=== PATIENT | male | born 1980 | race Caucasian/White ===

== ENCOUNTER 2020-03-21 12:04 | Emergency (ER) | payer SELFPAY ==
--- NOTE | ~2020-03-21 | XR_ITS ---
EXAMINATION: XR lumbar spine 2-3V, XR thoracic spine 3V DATE: 03/21/2020 13:31 INDICATION: Back pain after bending TECHNIQUE: 1. Anteroposterior, lateral and lateral swimmer's views of the thoracic spine were obtained. 2. Anteroposterior and lateral views of the lumbar spine, and cone-down lateral view of the lumbosac ral junction were obtained. COMPARISON: None. FINDINGS: Thoracic spine: 8 degree thoracic levocurvature measured between T4 and T7. Sagittal alignment is normal. Vertebral b marianela heights are normal. Minimal disc height loss at T3-T4 through T5-T6. Visualized portions of the l ungs are clear. No pleural effusion or pneumothorax. Cardiomediastinal silhouette is normal. Lumbar spine: 9 mm retrolisthesis L5 on S1 where there has been both anterior and posterior spinal fusion with lef t cervical carotid and pedicle screws, anterior plate and screws and solid osseous fusion across the disc space. No evident lucency surrounding the screws to suggest loosening or infection. 1-2 mm retro listhesis L2 on L3. Vertebral body heights are normal. Unfused disc heights are normal. No significan t lumbar facet osteoarthritis. Sacrum and bilateral sacroiliac joints are unremarkable. IMPRESSION: 1. 9 mm retrolisthesis L5 on S1 with solidly fused instrumented anterior and posterior spinal fusion at this level. 2. Minimal spondylosis in the more cephalad lumbar and thoracic spine. Reviewed, dictated and finalized at location [facility]. IMPRESSION: 1. 9 mm retrolisthesis L5 on S1 with solidly fused instrumented anterior and po sterior spinal fusion at this level. 2. Minimal spondylosis in the more cephalad lumbar and thoracic spine.
[2020-03-21 12:08] VITALS: BP 149/87; PULSE 103; RESP 18; TEMP 36.2; O2SAT 100
--- NOTE | 2020-03-21 12:25 | ED.GENADULT ---
HPI - General Adult General Chief complaint: Back Pain/Injury Stated complaint: back pain Time Seen by Provider: 03/21/20 12:19 Source: patient Mode of arrival: ambulatory Limitations: no limitations History of Present Illness HPI narrative: 39-year-old male patient resents to the [facility] with complaints of mid back pain that started yesterday morning. 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 Patient has history of lower lumbar surgery in the past. 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 Patient states he has been using icy hot, heating pad and multiple doses of ibuprofen to help with pain which has not helped. Patient denies any numbness or tingling down the legs or loss of bladder or bowel control. Patient states he is just constantly uncomfortable and cannot seem to be comfortable at all. Related Data Home Medications Medication Instructions Recorded Confirmed omeprazole 20 mg PO DAILY 03/21/20 03/21/20 Allergies Allergy/AdvReac Type Severity Reaction Status Date / Time No Known Allergies Allergy Unverified 03/21/20 12:13 Review of Systems Review of Systems: Narrative: CONSTITUTIONAL: Denies fever, chills, or sweats. EYES: Denies visual changes, redness, or discharge. ENT: Denies rhinorrhea, congestion, sore throat, or otalgia. CARDIOVASCULAR: Denies chest pain, palpitations, or edema. RESPIRATORY: Denies cough or dyspnea. GASTROINTESTINAL: Denies abdominal pain, nausea, vomiting, or diarrhea. GENITOURINARY: Denies dysuria or hematuria. SKIN: Denies rash or itching. MUSCULOSKELETAL: Denies back pain, joint pain, or myalgia. Positive back pain NEUROLOGIC: Denies headache, numbness, or weakness. PSYCHIATRIC: Denies anxiety or depression. PMFSH Social History Social History Gender identity (if verbalized by the patient): Male Comments At the time of my signature I agree with nursing past medical history, surgical, social, and family history. There is no relevant family history pertinent to the presenting complaint. Exam Narrative: Exam Narrative: GENERAL: Well-appearing, well-nourished, and in no acute distress. HEAD: Normocephalic, atraumatic. EYES: PERRLA and EOMI. ENT: Nares clear, no rhinorrhea or epistaxis. Mucous membranes moist. NECK: Supple. No lymphadenopathy CHEST: Clear to auscultation. No respiratory distress. HEART: Regular rate and rhythm. No murmur heard. Normal peripheral pulses. ABDOMEN: Soft, nontender, nondistended, normal active bowel sounds. EXTREMITIES: Normal range of motion. No edema. BACK: Patient is able to ambulated without assistance. Pt is standing obvouis distress. No surface trauma noted. No muscle tenderness to Palpation. No obvious spasm or mass. Tenderness on palpation noted to to T12 area. No CVA tenderness to percussion. No saddle anesthesia. ROM: able to stand erect. Painful flexion, extension, Lateral bending and rotation without limitation or complaint of pain. SKIN: Warm, dry, no rash. NEURO: No focal deficits. Alert and oriented x3. Course Reevaluation(s) Reevaluation #1: Reevaluated patient after his x-rays have resulted. Discussed with him that I do not see anything in the spine of the area that he was pointing to to have caused his pain. Discussed with his this is most likely some type of muscle spasm that could be causing his pain. Discussed with patient we will go ahead and discharge him home and I will give him a little bit of tramadol as well as some muscle relaxants to help with the pain. Discussed with him I want him to continue using the heating pad and doing some gentle stretching exercises. Discussed with him if he has symptoms of numbness and tingling down the legs or loss of bowel or bladder control that I want him to return to the ER right away. Discussed with him we will give him a
[2020-03-21] MEDS: DIAZEPAM 5 MG TABLET PO (13:02)
== END 2020-03-21 14:24 | disposition home or self-care (01) ==
PROVIDERS: Emergency Provider Nurse Practitioner Family
DX: M62.830 Muscle spasm of back (principal); M54.6 Pain in thoracic spine
CPT/HCPCS: 72072; 72100; 99283; A9270

== ENCOUNTER 2021-01-18 22:43 | Emergency (ER) | payer SELFPAY ==
--- NOTE | ~2021-01-18 | XR_ITS ---
EXAMINATION: XR hand LT min 3V EXAM DATE: 01/19/2021 00:06 INDICATION: Slammed hand in car door, laceration to 5th digit. TECHNIQUE: Left hand frontal, lateral and oblique projections obtained and reviewed. There is no kiko or study for comparison. FINDINGS: Left metacarpal bones are unremarkable. There are no acute fractures or dislocations ident ified. There is no subcutaneous gas. The soft tissue is unremarkable. There are no radiopaque for eign bodies. IMPRESSION: No acute osseous findings. Reviewed, dictated and finalized at location [facility]. IMPRESSION: No acute osseous findings.
[2021-01-18 22:48] VITALS: BP 150/93; PULSE 106; RESP 20; TEMP 35.9; O2SAT 99
--- NOTE | 2021-01-18 23:34 | ED.UPPEXIN ---
HPI - Extremity Injury (Upper) General Chief Complaint: Wound/Laceration Stated Complaint: HAND LAC Time Seen by Provider: 01/18/21 23:07 Source: patient Mode of arrival: ambulatory Limitations: no limitations History of Present Illness HPI narrative: Patient is a 30-year-old male complaining of smashing his left pinky finger on a car door. Patient has a laceration on the left pinky finger. He denies any other injuries. His tetanus shot is not up-to-date. Related Data Home Medications Medication Instructions Recorded Confirmed omeprazole 20 mg PO DAILY 03/21/20 03/21/20 Allergies Allergy/AdvReac Type Severity Reaction Status Date / Time No Known Allergies Allergy Verified 01/18/21 22:51 Review of Systems Review of Systems: All systems reviewed & are unremarkable except as noted in HPI and below PMFSH Social History Social History Gender identity (if verbalized by the patient): Male Comments Past medical history: GERD Family history: Noncontributory Social history non-smoker, occasional EtOH use, no drug use Exam Const: General: no acute distress and alert Orientation/consciousness: patient oriented x3 HENMT: Head: normal to inspection Eyes: Conjunctivae: conjunctivae normal Neck: Neck: normal visual inspection Resp: Effort & Inspection: normal respiratory effort Extrem: General: no clubbing, cyanosis or edema Other: 2 cm laceration left hand fifth digit, neurovascular is intact Course Vital Signs Vital signs: Vital Signs Temperature 35.9 C L 01/18/21 22:48 Pulse Rate 106 H 01/18/21 22:48 Respiratory Rate 20 01/18/21 22:48 Blood Pressure 150/93 H 01/18/21 22:48 Pulse Oximetry 99 01/18/21 22:48 Temperature 35.9 C L 01/18/21 22:48 Pulse Rate 106 H 01/18/21 22:48 Respiratory Rate 20 01/18/21 22:48 Blood Pressure 150/93 H 01/18/21 22:48 Pulse Oximetry 99 01/18/21 22:48 Procedures Laceration Laceration 1: Date: 01/18/21 Site: hand Side (If applicable): left Size (cm): 2 Description: linear Depth: simple, single layer Local Anesthetic: lidocaine 1% Amount of anesthesia used (mL): 3 Pre-repair: wound explored ====== Skin Level ====== Skin layer closed with: prolene Size (cm): 4-0 Number of sutures: 2 Technique: simple, interrupted ====== Subcutaneous Layer ====== ====== Muscle Layer ====== ====== Tendon Layer ====== Discharge Plan Discharge Clinical Impression: Finger laceration Qualifiers: Encounter type: initial encounter Finger: little finger Damage to nail status: without damage Foreign body presence: without foreign body Laterality: left Qualified Code(s): S61.217A - Laceration without foreign body of left little finger without damage to nail, initial encounter Patient Disposition: Home, Self-Care Condition: Improved Instructions: Care For Your Stitches (ED) Additional Instructions: Suture removal in 10 days Prescriptions: No Action omeprazole 20 mg Tablet,Delayed Release (Dr/Ec) 20 mg PO DAILY RF: 0 hydrocodone-acetaminophen [[place]] 5-325 mg tablet 1 tablet PO Q6H PRN (Reason: pain) Qty: 10 RF: 0 cyclobenzaprine 10 mg tablet 10 mg PO TID PRN (Reason: muscle spasm) Qty: 20 RF: 0 Follow-up/Referrals: PHYSICIAN,CORPORATE DRIVER [Primary Care Provider] - Time of Disposition: 23:38
[2021-01-19] MEDS: TETANUS,DIPHTHERIA,AC PERTUSSIS ADULT (0.5 ML) BOOSTRIX IM (00:07)
[2021-01-19 00:48] VITALS: BP 150/93; PULSE 100; RESP 16; TEMP 36.4; O2SAT 99
== END 2021-01-19 00:49 | disposition home or self-care (01) ==
PROVIDERS: Emergency Provider Emergency Medicine
DX: S61.217A Laceration without foreign body of left little finger without damage to nail, initial encounter (principal); K21.9 Gastro-esophageal reflux disease without esophagitis; Z23 Encounter for immunization; W23.0XXA Caught, crushed, jammed, or pinched between moving objects, initial encounter
CPT/HCPCS: 12001; 73130; 90471; 90715; 99283

== ENCOUNTER 2021-12-08 19:15 | Emergency (ER) | payer OTHER, SELFPAY ==
--- NOTE | ~2021-12-08 | CT_ITS ---
EXAMINATION: CT abdomen pelvis w con DATE: 12/08/2021 21:59 INDICATION: Lower abdominal pain TECHNIQUE: Computed tomography (CT) of the abdomen and pelvis was performed with 100 CC Omnipaque 350 intravenous contrast. Automated exposure control and iterative reconstruction technique were employe d. Exam dose: 1331.52 mGy-cm total exam DLP. COMPARISON: None. FINDINGS: The lung bases are clear of infiltrate or consolidation. Normal heart size. No pericardial or pleural effusion. There is diffuse hepatic steatosis. No hepatic space-occupying mass lesion. The gallbladder is presen t. No bile duct dilatation. No pancreatic mass lesion, calcification or ductal dilatation. The spleen measures 14.2 cm vertical dimension consistent with splenomegaly. Normal morphology of the adrenal glands. No renal mass lesion or scarring. No urinary tract calculus or hydroureteronephrosis. Normal caliber of the abdominal wall are consistent with atherosclerotic calcification of the infrare nal aorta and common iliac arteries. No intraperitoneal or retroperitoneal or pelvic mass lesion or a denopathy or ascites is detected. Normal appendix. There are fluid levels in the small bowel and colon without abnormal dilatation, abn ormal wall thickening, pneumatosis or intraperitoneal free air. The findings suggest enterocolitis. The urinary bladder and prostate gland are unremarkable. Bilateral small fat-containing inguinal hernias. Very small fat-containing umbilical hernia. Status post anterior and interbody and left posterior fusion at L5-S1. IMPRESSION: Hepatic steatosis Mild splenomegaly Normal appendix Fluid levels of small bowel and colon, suggesting enterocolitis Reviewed, dictated and finalized at [facility]. Reviewed, dictated and finalized at location [facility]. MANAGEMENT COUNSELOR
[2021-12-08 19:18] VITALS: BP 162/90; PULSE 110; RESP 18; TEMP 36.6; O2SAT 97
[2021-12-08 20:40] VITALS: BP 153/94; PULSE 104; RESP 18; O2SAT 97
[2021-12-08 20:48] VITALS: BP 137/84; PULSE 94
[2021-12-08 20:49] VITALS: BP 160/105; PULSE 111
[2021-12-08 20:51] VITALS: BP 144/91; PULSE 108
[2021-12-08 20:54] LABS: Basophils Absolute Auto 0.1 K/mm3 (0.0-0.1); Basophils Percent Auto 1.1 % (0.2-1.2); Eosinophils Absolute Auto 0.1 K/mm3 (0-0.3); Eosinophils Percent Auto 1.2 % (0-4.4); Hemoglobin 15.6 g/dL (14.0-18.0); Immature Granulocyte Absolute 0.05 K/mm3 (0.00-0.031); Immature Granulocyte Percent A 0.4 % (0-0.5); Lymphocytes Percent Auto 35.4 % (18.3-44.2); Mean Corpuscular HGB Conc 35.5 g/dl (32-36); Mean Corpuscular Volume 87.5 fl (80-100); Mean Platelet Volume 9.5 fl (7.4-10.4); Monocytes Percent Auto 8.2 % (2.6-8.5); Neutrophils Absolute Auto 6.2 K/mm3 (1.3-6.7); Neutrophils Percent Auto 53.7 % (45.5-73.1); Platelet Count Result 252 k/mm3 (150-375); Red Blood Count 5.03 M/mm3 (4.6-6.20); Red Cell Distribution Width 13.9 % (11.5-14.5); White Blood Count 11.6 K/mm3 (4.5-10.0)
[2021-12-08 21:04] LABS: Alanine Aminotransferase 46 U/L (4-50); Albumin Level 4.6 g/dL (3.5-5.1); Alkaline Phosphatase 49 U/L (38-126); Anion Gap 11 mmol/L (8-16); Aspartate Amino Transferase 43 U/L (17-59); Bilirubin,Total 1.2 mg/dL (0.2-1.3); Blood Urea Nitrogen 11 mg/dL (9-20); Calcium 8.6 mg/dL (8.4-10.2); Carbon Dioxide 23 mmol/L (22-30); Chloride 104 mmol/L (98-107); Estimated CRCL calculation 128 ml/min; Estimated Glomerular Filt Rate > 60; Glucose 87 mg/dL (65-110); Potassium 3.6 mmol/L (3.4-5.0); Sodium 138 mmol/L (137-145)
[2021-12-08 21:07] LABS: Partial Thromboplastin Time 28.5 SECONDS (22.3-36.8); Prothrombin Time 12.7 Seconds (11.1-14.7)
[2021-12-08] MEDS: LACTATED RINGERS 1,000 ML 999 ML IV CONT (22:04)
[2021-12-08] MEDS: ONDANSETRON INJ 4 MG/2 ML VIAL IV PUSH (22:04)
[2021-12-08] MEDS: PANTOPRAZOLE SODIUM IV 40 MG VIAL IV PUSH (22:04)
--- NOTE | 2021-12-08 22:05 | ED.GIBLEED ---
HPI - GI Bleed General Chief complaint: GI Bleed Stated complaint: blood in stool, vomiting Time Seen by Provider: 12/08/21 21:30 Source: patient and RN notes reviewed Mode of arrival: ambulatory Limitations: no limitations History of Present Illness HPI Narrative: Martin s a 41 year old male with history of GERD who presents for evaluation of bloody stools. Patient reports he started getting sick 1 week ago. He started with diarrhea with blood and mucus 1 week ago. He was having 2- 3 stools per day which is normal for him. He has only had diarrhea once today and he denies any blood in his stool today. He came to ER because he developed nausea and vomiting yesterday. He had 3 episodes of emesis today and he reports his last episode has blood streaks. He has intermittent lower abdominal pain . He denies recent antibiotic use or travel. He also denies fever or chills. Related Data Home Medications Medication Instructions Recorded Confirmed escitalopram oxalate mg 12/08/21 hydroxyzine HCl 12/08/21 12/08/21 omeprazole 40 mg PO DAILY 12/08/21 12/08/21 quetiapine 12/08/21 12/08/21 Allergies Allergy/AdvReac Type Severity Reaction Status Date / Time No Known Allergies Allergy Verified 12/08/21 20:41 Review of Systems Review of Systems: All systems reviewed & are unremarkable except as noted in HPI and below Constitutional: Constitutional: Reports chills and Reports fatigue Comments: sweats Cardiovascular: Cardiovascular: Denies chest pain Respiratory: Respiratory: Denies cough and Denies dyspnea Gastrointestinal: Gastrointestinal: Reports abdominal pain, Reports diarrhea, Reports nausea and Reports vomiting PMFSH Past Medical History Medical History (Updated 12/09/21 @ 00:51 by Bonnie Sarah MD) Anxiety Depression GERD (gastroesophageal reflux disease) Surgical History Surgical History (Updated 12/08/21 @ 22:09 by Bonnie Sarah MD) History of lumbar fusion Social History Social History (Updated 12/08/21 @ 22:10 by Bonnie Sarah MD) Smoking packs per day: 1 Smoking cigarettes per day: 20.0 Smoking status: Current every day smoker Alcohol intake: current Substance use: never Gender identity (if verbalized by the patient): Male Exam Const: General: no acute distress and alert Orientation/consciousness: patient oriented x3 Eyes: EOM: EOMs intact bilaterally Chest: Chest palpation & inspection: normal inspection of the chest Resp: Effort & Inspection: normal respiratory effort and no retractions Auscultation: clear to auscultation bilaterally Cardio: Rate: regular rate Rhythm: regular rhythm Heart sounds: no murmurs GI: GI Palp: Yes Soft to palpation, Yes Tenderness to palpation present (GI) (lower abdomen), No Guarding due to palpation present (GI) and No Rigid due to palpation Auscultation: normal bowel sounds Skin: General skin exam: normal color Rashes: no rashes Neuro: General: patient oriented x3, moves all extremities and CN's II-XI intact bilaterally Course Reevaluation(s) Reevaluation #1: Patient states he feels much better. He denies nausea or vomiting. His stool is yellow and guaic negative. He likely has mucosal tear superficial . . Date: 12/09/21 Time: 00:47 Vital Signs Vital signs: Vital Signs Temperature 98 F 12/08/21 19:18 Pulse Rate 110 H 12/08/21 19:18 Respiratory Rate 18 12/08/21 19:18 Blood Pressure 162/90 H 12/08/21 19:18 Pulse Oximetry 97 12/08/21 19:18 Temperature 98 F 12/08/21 19:18 Pulse Rate 98 12/09/21 01:19 Respiratory Rate 18 12/09/21 01:19 Blood Pressure 146/107 H 12/09/21 01:19 Pulse Oximetry 97 12/09/21 01:19 MDM - GI Bleed Lab Data Attestation: I reviewed the patient's lab results. Result diagrams: 12/08/21 20:49 12/08/21 20:49 Labs: Lab Results 12/08/21 12/08/21 12/08/21 Range/Units 20:49 20:49 20:49 WBC 11.6 H (4.5-10.0) K/
[2021-12-08 22:32] VITALS: BP 140/83; PULSE 86; RESP 16; O2SAT 96
--- NOTE | 2021-12-09 00:18 | PC.NURSE ---
Pt given water and crackers
[2021-12-09 01:19] VITALS: BP 146/107; PULSE 98; RESP 18; O2SAT 97
== END 2021-12-09 01:21 | disposition home or self-care (01) ==
PROVIDERS: Emergency Medicine; Emergency Provider General Practice
DX: K52.9 Noninfective gastroenteritis and colitis, unspecified (principal); K21.9 Gastro-esophageal reflux disease without esophagitis; F41.9 Anxiety disorder, unspecified; F32.A Depression, unspecified; Z98.1 Arthrodesis status; F17.210 Nicotine dependence, cigarettes, uncomplicated; R16.1 Splenomegaly, not elsewhere classified
CPT/HCPCS: 36415; 74177; 80053; 85025; 85610; 85730; 86850; 86900; 86901; 96361; 96374; 96375; 99284; C9113; J2405; J7120; Q9967

== ENCOUNTER 2022-11-04 13:32 | Emergency (ER) | payer OTHER, MEDICAID, SELFPAY ==
--- NOTE | ~2022-11-04 | CT_ITS ---
EXAMINATION: CT brain wo con DATE: 11/04/2022 14:18 INDICATION: Vision change TECHNIQUE: Computed tomography (CT) of the head was performed without intravenous contrast. Sagittal and coronal reconstructions were performed. The mA was adjusted according to patient size. Iterative reconstruction technique was employed. The dose-length product was 605.33 mGy-cm. COMPARISON: head CT dated 12/15/16 FINDINGS: No acute intracranial hemorrhage, acute infarction or abnormal extra axial fluid collection. Ventricl es are normal and symmetric. No mass/mass effect. The paranasal sinuses and mastoid air cells are nor mal. 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 Left orbit is normal. IMPRESSION: 1. Normal brain. No acute intracranial process. 2. 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 Reviewed, dictated and finalized at location [facility]. NARY ASSISTANT IMPRESSION: 1. Normal brain. No acute intracranial process. 2. 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
[2022-11-04 13:35] VITALS: BP 152/83; PULSE 107; RESP 14; TEMP 36.4; O2SAT 100
--- NOTE | 2022-11-04 14:10 | ED.GENADULT ---
HPI - General Adult General Chief complaint: Neuro Symptoms/Deficit Stated complaint: neurological symptoms x 2 weeks Time Seen by Provider: 11/04/22 13:43 History of Present Illness HPI narrative: 42-year-old male presenting to the emergency department for evaluation of multiple symptoms including intermittent blurred vision, nonspecific changes and decreased p.o. intake. Patient states approximately 2 weeks ago he began having intermittent episodes that last about 10 to 15 seconds where he has some lightheadedness. Patient denies feeling off loss of consciousness and does not describe a spinning sensation. Patient states these episodes can happen multiple times a day and are very short lasting. Patient states that happen during activity or at rest. Patient did give example of it happening when he was doing a jigsaw puzzle and he was highly focused on the puzzle. Patient also reports that when walking he has had some short lasting changes and depth perception changes that are also short lasting. Patient also reports that he has seen short lasting shadows in his peripheral vision, he gave the example of seeing a dark shadow in his peripheral vision that he thought was his dog but turned out it was not his dog. These shadows are very short lasting and are not currently occurring. Patient also reports that 1 week ago he was switched from Effexor to Zoloft. Patient reports since this time he has had decreased p.o. intake. Patient takes his medications for his OCD. While the Effexor has helped with his OCD his psychiatrist concerned that it may not be helping enough. Patient was referred to the emergency department for evaluation for his multiple complaints. At time of examination denies any visual changes. Patient denies any current lightheadedness or dizziness. Related Data Home Medications Medication Instructions Recorded Confirmed escitalopram oxalate 10 mg tablet mg 12/08/21 hydroxyzine HCl 25 mg tablet 12/08/21 12/08/21 omeprazole 40 mg capsule,delayed 40 mg PO DAILY 12/08/21 12/08/21 release quetiapine 100 mg tablet 12/08/21 12/08/21 Allergies Allergy/AdvReac Type Severity Reaction Status Date / Time No Known Allergies Allergy Verified 11/04/22 14:32 Review of Systems Review of Systems: CONSTITUTIONAL: Denies fever, chills, or sweats. EYES: See HPI ENT: Denies rhinorrhea, congestion, sore throat, or otalgia. CARDIOVASCULAR: Denies chest pain, palpitations, or edema. RESPIRATORY: Denies cough or dyspnea. GASTROINTESTINAL: See HPI GENITOURINARY: Denies dysuria or hematuria. SKIN: Denies rash or itching. MUSCULOSKELETAL: Denies back pain, joint pain, or myalgia. NEUROLOGIC: Denies headache, numbness, or weakness. PSYCHIATRIC: See HPI [facility] Past Medical History Medical History (Updated 11/04/22 @ 16:11 by Bandar Garza MD) Anxiety Depression GERD (gastroesophageal reflux disease) Surgical History Surgical History (Updated 12/08/21 @ 22:09 by Bonnie Sarah MD) History of lumbar fusion Social History Social History (Updated 12/08/21 @ 22:10 by Bonnie Sarah MD) Smoking packs per day: 1 Smoking cigarettes per day: 20.0 Smoking status: Current every day smoker Alcohol intake: current Substance use: never Gender identity (if verbalized by the patient): Male Exam Narrative: APPEARANCE: Well appearing, no pain, no distress, well-nourished. HEAD: normocephalic, atraumatic. EYES: PERRLA/EOMI, conjunctivae clear. Normal fundus exam NOSE: Normal no drainage EARS:TMS clear with good light reflex. THROAT: Pharynx clear, no exudate. NECK: Supple. No adenopathy, no masses. RESPIRATORY: Airway patent, respirations nonlabored. Clear to auscultation bilaterally, no rales, rhonchi, wheezing. CARDIOVASCULAR: Regular rate and rhythm without murmurs rubs or gallops. ABDOMINAL: Soft, nontender, nondistended, normal bowel sounds MUSCULOSKELETAL: Moves all extremities. Strength/ROM intact,
[2022-11-04 14:11] VITALS: O2SAT 97
[2022-11-04 14:13] VITALS: BP 148/85
[2022-11-04 14:20] VITALS: O2SAT 96
[2022-11-04 14:27] LABS: Basophils Absolute Auto 0.1 K/mm3 (0.0-0.1); Basophils Percent Auto 1.3 % (0.2-1.2); Eosinophils Absolute Auto 0.3 K/mm3 (0-0.3); Eosinophils Percent Auto 3.3 % (0-4.4); Hematocrit 43.6 % (42.0-52.0); Hemoglobin 15.3 g/dL (14.0-18.0); Immature Granulocyte Absolute 0.04 K/mm3 (0.00-0.031); Immature Granulocyte Percent A 0.4 % (0-0.5); Lymphocytes Percent Auto 33.4 % (18.3-44.2); Mean Corpuscular HGB Conc 35.1 g/dl (32-36); Mean Corpuscular Hemoglobin 29.9 pg (26-34); Mean Corpuscular Volume 85.2 fl (80-100); Mean Platelet Volume 9.2 fl (7.4-10.4); Monocytes Absolute Auto 0.8 K/mm3 (0.1-0.6); Monocytes Percent Auto 8.9 % (2.6-8.5); Neutrophils Absolute Auto 4.9 K/mm3 (1.3-6.7); Neutrophils Percent Auto 52.7 % (45.5-73.1); Platelet Count Result 215 k/mm3 (150-375); Red Blood Count 5.12 M/mm3 (4.6-6.20); White Blood Count 9.3 K/mm3 (4.5-10.0)
[2022-11-04 14:32] VITALS: O2SAT 97
[2022-11-04 14:36] LABS: Alanine Aminotransferase 76 U/L (6-50); Alkaline Phosphatase 42 U/L (38-126); Anion Gap 6 mmol/L (8-16); Aspartate Amino Transferase 47 U/L (17-59); Bilirubin,Total 0.8 mg/dL (0.2-1.3); Blood Urea Nitrogen 6 mg/dL (9-20); Calcium 8.6 mg/dL (8.4-10.2); Carbon Dioxide 27 mmol/L (22-30); Chloride 104 mmol/L (98-107); Estimated CRCL calculation 156 ml/min; Estimated Glomerular Filt Rate > 60; Glucose 114 mg/dL (65-110); Potassium 3.7 mmol/L (3.4-5.0); Sodium 137 mmol/L (137-145)
[2022-11-04 14:37] LABS: Magnesium 1.9 mg/dL (1.6-2.3)
[2022-11-04 14:37] LABS: Prothrombin Time 13.1 Seconds (11.1-14.7)
[2022-11-04 14:38] LABS: Partial Thromboplastin Time 30.1 SECONDS (22.3-36.8)
[2022-11-04 14:48] LABS: Influenza A QL RT-PCR Negative (Negative); Influenza B QL RT-PCR Negative (Negative); RSV RNA, RT-PCR Negative (Negative); SARS-CoV-2 RNA PCR Negative
[2022-11-04 15:03] LABS: Appearance Urine Clear (Clear); Bilirubin Urine 1+ (Negative); Blood Urine Negative (Negative); Color Urine Yellow (Yellow); Glucose Urine UA Negative (Negative); Ketones Urine Negative (Negative); Leukocyte Esterase Ur Negative LEU/UL (Negative); Nitrate Urine Negative (Negative); Protein Urine 1+ mg/dL (Negative); pH Urine 6.5 (5.0-9.0)
[2022-11-04 15:10] LABS: Bacteria Urine Trace /hpf; Mucus Urine Rare /lpf; RBC Urine 0-2 /hpf (0-2); Squamous Epithelial Cell Urine Rare /hpf (Few); WBC Urine 0-3 /hpf
[2022-11-04 15:11] LABS: Add Urine Microscopic? YES
--- NOTE | 2022-11-04 15:57 | ECG_ITS ---
Measurements Intervals [place] Rate: 91 P: 55 NV: 141 QRS: 47 QRSD: 89 T: 41 QT: 360 QTc: 443 Interpretive Statements SINUS RHYTHM LOW QRS VOLTAGE IN PRECORDIAL LEADS BORDERLINE T WAVE ABNORMALITY- HIGH LATERAL LEADS BASELINE ARTIFACT- I, II, AVR, AVL, AVF BORDERLINE ECG NO PREVIOUS ECG AVAILABLE FOR COMPARISON Electronically Signed On 11-04-2022 19:18:54 ELECTROTYPER by Victor Hugo Loving D.O.
== END 2022-11-04 16:35 | disposition home or self-care (01) ==
PROVIDERS: Emergency Provider Emergency Medicine
DX: R42 Dizziness and giddiness (principal); H53.9 Unspecified visual disturbance; Z20.822 Contact with and (suspected) exposure to COVID-19; F41.9 Anxiety disorder, unspecified; F32.9 Major depressive disorder, single episode, unspecified; K21.9 Gastro-esophageal reflux disease without esophagitis
CPT/HCPCS: 36415; 70450; 80053; 81001; 83735; 84443; 85025; 85610; 85730; 87637; 93005; 99284

== ENCOUNTER 2022-12-02 12:01 | Emergency (ER) | payer OTHER, MEDICAID, SELFPAY ==
--- NOTE | ~2022-12-02 | CT_ITS ---
EXAMINATION: CT thoracic lumbar wo con DATE: 12/02/2022 14:05 INDICATION: Back pain post fall TECHNIQUE: High resolution computed tomography (CT) of the thoracic and lumbar spine was performed wi thout intravenous contrast. Additional sagittal and coronal reconstructions were performed. Automated exposure control and iterative reconstruction technique were employed. The dose-length product was 2 207.47 mGy-cm. COMPARISON: CT abdomen and pelvis dated 12/08/2021 and thoracic and lumbar spine radiographs dated 03/11 FINDINGS: Thoracic spine: Minimal thoracic levocurvature. Sagittal alignment is normal. Chronic minimal anterior wedging of T11 and T12. Remaining thoracic vertebral body heights are normal. There is multilevel mild disc height loss from T3-T4 through T5-T6 and minimal disc height loss with mild degenerative endplate changes at T6-T7 through T10-11. Unchanged small corticated ossicle at the caudal tip of the T6 spinous process . No acute fractures. Multilevel mild thoracic facet osteoarthritis without neural foraminal stenosis . No central canal stenosis. Respiratory motion minimal atelectasis in the visualized lungs. Paravert ebral soft tissues are unremarkable. Lumbar spine: Alignment is normal. L5-S1 anterior spinal fusion with incorporated interbody bone graft and anterior plate and screw fixation. There is also an L5-S1 posterior spinal fusion with solid osseous fusion a cross the bilateral facet joints and with right-sided vertical iraida and pedicle screw fixation. Bone g raft harvest site at the adjacent right posterior iliac spine. Unfused lumbar vertebral body and disc heights are normal. Mild disc bulges without significant central canal stenosis at L2-L3 through L4- L5. Moderate left and moderate to severe right sided facet osteoarthritis at L4-L5. Mild facet osteoa rthritis in the more cephalad lumbar spine. Mild bilateral neural foraminal stenosis at L3-L4 and L4- L5 and minimal bilateral stenosis at L2-L3. Paravertebral soft tissues are unremarkable. IMPRESSION: 1. Mild thoracic and lumbar spondylosis. No acute osseous abnormality. 2. Estimated anterior and posterior spinal fusion at L5-S1. Reviewed, dictated and finalized at location A. [facility]
[2022-12-02 12:04] VITALS: BP 151/84; PULSE 110; RESP 18; TEMP 36.6; O2SAT 97
[2022-12-02 12:54] VITALS: BP 105/56; PULSE 83; RESP 18; TEMP 37.1; O2SAT 97
--- NOTE | 2022-12-02 13:30 | ED.BACK ---
HPI - Back Pain/Injury General Chief Complaint: Back Pain/Injury Stated Complaint: back pain post fall Time Seen by Provider: 12/02/22 13:29 Source: patient Mode of arrival: ambulatory Limitations: no limitations History of Present Illness HPI Narrative: Patient is a 42-year-old male with a history of lumbar spinal fusion presenting for evaluation of back pain. Patient states that he tripped while ascending a flight of steps while holding some household items 5 days ago. Patient states he fell onto his right side. No head trauma. Patient reports since that time he has had continued pain in the lower back and radiation into the bilateral hips and pelvis. Pain is dull, aching in nature, exacerbated with movement. He reports right great toe numbness. He has been ambulatory without difficulty. No saddle anesthesia. No difficulty with urination, he denies urinary retention. He has not taken any medications for this pain. Secondary to his spinal fusion, wanted to ensure no active disc herniation or hardware complication thus prompting his visit to the emergency department today. Related Data Home Medications Medication Instructions Recorded Confirmed escitalopram oxalate 10 mg tablet mg 12/08/21 hydroxyzine HCl 25 mg tablet 12/08/21 12/08/21 omeprazole 40 mg capsule,delayed 40 mg PO DAILY 12/08/21 12/08/21 release quetiapine 100 mg tablet 12/08/21 12/08/21 Allergies Allergy/AdvReac Type Severity Reaction Status Date / Time No Known Allergies Allergy Verified 11/04/22 14:32 [facility] Past Medical History Medical History (Updated 12/02/22 @ 14:36 by Marla Nova MD) Anxiety Depression GERD (gastroesophageal reflux disease) Muscle spasm Surgical History Surgical History History of lumbar fusion Social History Social History Smoking packs per day: 1 Smoking cigarettes per day: 20.0 Smoking status: Current every day smoker Alcohol intake: current Substance use: never Gender identity (if verbalized by the patient): Male Exam Narrative: GENERAL: Awake, alert, conversant HEAD: Normocephalic, atraumatic. EYES: PERRLA and EOMI. ENT: Nares clear, no rhinorrhea or epistaxis. Mucous membranes moist. NECK: Supple. CHEST: No respiratory distress, breathing even and non labored HEART: Regular rate, sinus rhythm ABDOMEN:Non distended, non tender EXTREMITIES: Normal range of motion. No edema. No midline cervical tenderness. Positive thoracic tenderness about T11, 12, L1, 2, 3 and 4. Positive lumbar paraspinal tenderness. SKIN: Warm, dry, no rash. NEURO:No focal deficits. Alert and oriented x3. Ambulatory with a narrow base, steady gait. No ataxia. Intact EHL such as FHL bilaterally. Strength in the bilateral upper and lower extremities is 5/5. Intact upper and lower extremity sensation without limitation. Reflexes 2+ bilaterally. Course Vital Signs Vital signs: Vital Signs Temperature 36.6 C 12/02/22 12:04 Pulse Rate 110 H 12/02/22 12:04 Respiratory Rate 18 12/02/22 12:04 Blood Pressure 151/84 H 12/02/22 12:04 Pulse Oximetry 97 12/02/22 12:04 Oxygen Delivery Room Air 12/02/22 12:04 Temperature 37.1 C 12/02/22 12:54 Pulse Rate 83 12/02/22 12:54 Respiratory Rate 18 12/02/22 12:54 Blood Pressure 105/56 L 12/02/22 12:54 Pulse Oximetry 97 12/02/22 12:54 Oxygen Delivery Room Air 12/02/22 12:04 MDM - Back Pain/Injury MDM Narrative Medical decision making narrative: Medical decision making narrative: -Presentation: Patient is a 42-year-old male with a history of lumbar fusion presenting for evaluation of back pain following a fall while ascending a flight of steps. Patient is neurovascularly intact at the time of assessment, vital signs are stable and he is overall well-appearing. He does have reproducible pain in the midline of the th
[2022-12-02] MEDS: oxyCODONE/ACETAMINOPHEN (*CRX) 5-325 MG TABLET 1 TABLET PO (14:21)
[2022-12-02] MEDS: diazePAM (*CRX) 5 MG TABLET PO (14:22)
[2022-12-02 15:06] VITALS: BP 136/64; PULSE 106; RESP 14; O2SAT 98
== END 2022-12-02 15:07 | disposition home or self-care (01) ==
PROVIDERS: Emergency Provider Emergency Medicine; PCP Nurse Practitioner Family
DX: S39.012A Strain of muscle, fascia and tendon of lower back, initial encounter (principal); M54.16 Radiculopathy, lumbar region; F17.210 Nicotine dependence, cigarettes, uncomplicated; F41.9 Anxiety disorder, unspecified; F32.9 Major depressive disorder, single episode, unspecified; K21.9 Gastro-esophageal reflux disease without esophagitis; W10.9XXA Fall (on) (from) unspecified stairs and steps, initial encounter
CPT/HCPCS: 72128; 72131; 99284; A9270; J1100

== ENCOUNTER 2023-01-02 10:13 | Outpatient (CLI) | payer OTHER, MEDICAID, SELFPAY ==
--- NOTE | ~2023-01-02 | XR_ITS ---
XR chest 2V DATE: 01/02/2023 10:30 INDICATION: Lower extremity edema. Anxiety. Smoker. TECHNIQUE: PA and lateral views COMPARISON: 10/04/2018 two-view chest FINDINGS: Normal heart size. No hilar or mediastinal enlargement. Bilateral hyperinflation. No pulmon macarena infiltrate or consolidation, pleural effusion or pulmonary vascular congestion or pneumothorax. Included skeletal structures are unremarkable. IMPRESSION: Moderate bilateral hyperinflation; no active cardiopulmonary disease otherwise Reviewed, dictated and finalized at location A. IMPRESSION: Moderate bilateral hyperinflation; no active cardiopulmonary diseas e otherwise
[2023-01-02 11:05] LABS: Hematocrit 42.9 % (42.0-52.0); Mean Corpuscular Hemoglobin 30.7 pg (26-34); Mean Corpuscular Volume 87.7 fl (80-100); Mean Platelet Volume 9.1 fl (7.4-10.4); Platelet Count Result 199 k/mm3 (150-375); Red Blood Count 4.89 M/mm3 (4.6-6.20); Red Cell Distribution Width 14.6 % (11.5-14.5); White Blood Count 9.1 K/mm3 (4.5-10.0)
[2023-01-02 11:13] LABS: Appearance Urine Clear (Clear); Bacteria Urine None Seen /hpf; Bilirubin Urine Negative (Negative); Blood Urine Negative (Negative); Color Urine Dark Yellow (Yellow); Glucose Urine UA Negative (Negative); Ketones Urine Trace mg/dL (Negative); Leukocyte Esterase Ur Negative LEU/UL (NEGATIVE); Nitrate Urine Negative (Negative); Non Pathogenic Casts 0-2; Protein Urine 1+ mg/dL (Negative); RBC Urine 0-2 /hpf (0-2); Specific Grav Ur 1.024 (1.001-1.035); Squamous Epithelial Cell Urine None seen /hpf (Few); WBC Urine 0-5 /hpf (0-3); pH Urine 5.5 (5.0-9.0)
[2023-01-02 11:20] LABS: Alanine Aminotransferase 48 U/L (6-50); Albumin Level 4.6 g/dL (3.5-5.1); Alkaline Phosphatase 42 U/L (38-126); Anion Gap 8 mmol/L (8-16); Aspartate Amino Transferase 34 U/L (17-59); Bilirubin,Total 1.3 mg/dL (0.2-1.3); Blood Urea Nitrogen 10 mg/dL (9-20); Calcium 8.9 mg/dL (8.4-10.2); Carbon Dioxide 28 mmol/L (22-30); Chloride 103 mmol/L (98-107); Cholesterol 244 mg/dL (0-200); Estimated Glomerular Filt Rate > 60; Glucose 90 mg/dL (65-110); HDL Direct 39 mg/dL; Potassium 3.9 mmol/L (3.4-5.0); Sodium 139 mmol/L (137-145); Triglycerides 142 mg/dL (<150)
[2023-01-02 11:23] LABS: Rheumatoid Factor < 8.6 IU/ML (<12)
[2023-01-02 11:30] LABS: LDL Cholesterol Direct 177 mg/dL
[2023-01-02 11:50] LABS: Prostate Specific Antigen 0.3 ng/mL (< OR = 4.0)
[2023-01-02 11:58] LABS: Add Urine Microscopic? YES
[2023-01-02 11:59] LABS: Creatinine Urine 192.3 mg/dL
[2023-01-02 12:13] LABS: Hemoglobin A1C 4.8 % (<5.7)
[2023-01-02 12:22] LABS: MALB Creatinine Ratio 39.6 mg/g (0-30); Microalbumin Urine Random 76.2 mg/L (0-16.7)
[2023-01-02 12:32] LABS: Vitamin D 25 Hydroxy 29.7 ng/mL
[2023-01-02 12:55] LABS: Erythrocyte Sedimentation Rate 5 mm/hr (0-20)
[2023-01-06 17:23] LABS: Testosterone Total 329 ng/dL (250-1100)
== END 2023-01-02 10:14 | disposition home or self-care (01) ==
PROVIDERS: PCP Emergency Medicine; Visit Provider Emergency Medicine
DX: F43.10 Post-traumatic stress disorder, unspecified (principal); H53.8 Other visual disturbances; M32.9 Systemic lupus erythematosus, unspecified; G43.909 Migraine, unspecified, not intractable, without status migrainosus; R60.9 Edema, unspecified; R91.8 Other nonspecific abnormal finding of lung field
CPT/HCPCS: 36415; 71046; 80053; 80061; 81001; 82043; 82306; 83036; 84153; 84402; 84403; 84439; 84443; 85027; 85652; 86038; 86430; G0103

== ENCOUNTER 2023-01-12 09:57 | Emergency (ER) | payer OTHER, BC, SELFPAY ==
[2023-01-12 10:07] VITALS: BP 145/83; PULSE 120; RESP 20; TEMP 36.6; O2SAT 99
--- NOTE | 2023-01-12 12:01 | PC.NURSE ---
Pt came up to intake desk and stated he would be leaving and can deal with situation at home. Pt independently ambulatory out of ED at this time. A&Ox4, resp even non-labored. Skin pink, warm, and dry.
== END 2023-01-12 12:01 | disposition left against medical advice (07) ==
PROVIDERS: PCP Emergency Medicine
DX: M54.50 Low back pain, unspecified (principal)
CPT/HCPCS: 99199

== ENCOUNTER 2023-01-26 08:44 | Emergency (ER) | payer BC, SELFPAY ==
--- NOTE | ~2023-01-26 | CT_ITS ---
CT of the Abdomen and Pelvis: Indication: Abdominal pain Technique: 2.5 mm axial scans were obtained through the abdomen and pelvis following intravenous adm inistration of 100 cc of Omnipaque 350. Dose reduction technique was used on this scan by utilizing a utomated exposure control and iterative reconstruction technique. The dose-length product (DLP) was 1 455.98 mGy-cm. COMPARISON: 12/08/2021 Findings: Scans through the lung bases are unremarkable. Probable diffuse fatty infiltration of liver noted. The spleen, pancreas, gallbladder, adrenals and k idneys are within normal limits. No evidence of aortic aneurysm. No lymphadenopathy. No bowel obstruction or bowel wall thickening. There is no evidence to suggest acute appendicitis. Images through the pelvis were performed. Urinary bladder unremarkable. Prostate gland and seminal ve sicles are unremarkable. No ascites. Impression: No acute abnormality evident. Diffuse fatty infiltration of liver. Reviewed, dictated and finalized at [facility]. Impression: No acute abnormality evident. Diffuse fatty infiltration of liver.
[2023-01-26 08:47] VITALS: BP 181/72; PULSE 118; RESP 18; TEMP 37.1; O2SAT 100
--- NOTE | 2023-01-26 09:12 | ED.ABDPAIN ---
HPI - Abdominal Pain General Chief Complaint: Abdominal Pain Stated Complaint: abd pain, back pain Time Seen by Provider: 01/26/23 08:59 Source: patient Mode of arrival: ambulatory Limitations: no limitations History of Present Illness HPI narrative: This is a 42-year-old male with PMH of GERD who presents the ED with chief complaint of upper abdominal pain times several weeks and low back pain times several months. He does feel that they are separate issues. He is being worked up for the back pain with his primary care physician. He was seen by his PCP and was told to go to the ER for this abdominal pain. Patient describes a left upper quadrant and right upper quadrant abdominal pain that he rates at a 5 out of 10. He states it is relatively constant. Describes it as a discomfort. Also endorses abdominal distention for several weeks. No specific association with food. Unable to tell about any triggers. Does note some constipation but last bowel movement was yesterday. Denies fevers, chills, chest pain, shortness of breath, nausea, vomiting, diarrhea. No saddle anesthesia or bladder or bowel dysfunction. Feels that the back pain is same in character, however just slightly worse in severity. Patient has secondary complaints of bilateral lower extremity pain and swelling. He notes that the pain comes on in both lower extremities whenever he walks. Gets better at rest. He does endorse some shortness of breath and cough but attributes this to his smoking, does not feel that it is increased above baseline. Related Data Home Medications Medication Instructions Recorded Confirmed escitalopram oxalate 10 mg tablet mg 12/08/21 hydroxyzine HCl 25 mg tablet 12/08/21 12/08/21 omeprazole 40 mg capsule,delayed 40 mg PO DAILY 12/08/21 12/08/21 release quetiapine 100 mg tablet 12/08/21 12/08/21 Allergies Allergy/AdvReac Type Severity Reaction Status Date / Time No Known Allergies Allergy Verified 01/26/23 09:41 Review of Systems Review of Systems: CONSTITUTIONAL: Denies fever, chills, or sweats. EYES: Denies visual changes, redness, or discharge. ENT: Denies rhinorrhea, congestion, sore throat, or otalgia. CARDIOVASCULAR: Denies chest pain, palpitations, or edema. RESPIRATORY: Denies cough or dyspnea. GASTROINTESTINAL: See HPI GENITOURINARY: Denies dysuria or hematuria. SKIN: Denies rash or itching. MUSCULOSKELETAL: See HPI NEUROLOGIC: Denies headache, numbness, dizziness, or weakness. PSYCHIATRIC: Denies anxiety or depression. [facility] Past Medical History Medical History (Updated 01/26/23 @ 12:18 by Demarcus Davis PA-C) Anxiety Depression GERD (gastroesophageal reflux disease) Muscle spasm Surgical History Surgical History History of lumbar fusion Social History Social History Smoking packs per day: 1 Smoking cigarettes per day: 20.0 Smoking status: Current every day smoker Alcohol intake: current Substance use: never Gender identity (if verbalized by the patient): Male Exam Narrative: GENERAL: Well-appearing, well-nourished, and in no acute distress. HEAD: Normocephalic, atraumatic. EYES: PERRLA and EOMI. ENT: Nares clear, no rhinorrhea or epistaxis. Mucous membranes moist. Oropharynx without tonsillar hypertrophy exudate or other lesions. NECK: Supple. No adenopathy or masses. CHEST: No respiratory distress. Clear to auscultation. No wheezes rales or rhonchi HEART: Tachycardic with regular rhythm. No murmur heard. Normal peripheral pulses. ABDOMEN: Moderately tender in the left upper quadrant, epigastrium. Moderate distention present. Soft, normal active bowel sounds. No guarding. Negative peritoneal signs. Negative Fuentes sign, negative McBurney's point. EXTREMITIES: Normal range of motion. No edema. SKIN: Warm, dry, no rash. NEURO: Alert and oriented x3. No focal deficits
--- NOTE | 2023-01-26 09:13 | ECG_ITS ---
Measurements Intervals [place] Rate: 107 P: 31 NE: 112 QRS: 36 QRSD: 82 T: 18 QT: 307 QTc: 410 Interpretive Statements SINUS TACHYCARDIA WITH SHORT NE INTERVAL ABNORMAL RHYTHM ECG COMPARED TO ECG 11/04/2022 16:12:52 SINUS TACHYCARDIA NOW PRESENT Electronically Signed On 01-26-2023 17:51:12 CDT by Vaishali Salgado M.D.
[2023-01-26 09:33] LABS: Basophils Absolute Auto 0.1 K/mm3 (0.0-0.1); Basophils Percent Auto 0.9 % (0.2-1.2); Eosinophils Absolute Auto 0.2 K/mm3 (0-0.3); Hematocrit 41.4 % (42.0-52.0); Hemoglobin 14.8 g/dL (14.0-18.0); Immature Granulocyte Absolute 0.07 K/mm3 (0.00-0.031); Immature Granulocyte Percent A 0.7 % (0-0.5); Lymphocytes Absolute Auto 2.03 K/mm3 (0.9-3.2); Lymphocytes Percent Auto 21.4 % (18.3-44.2); Mean Corpuscular HGB Conc 35.7 g/dl (32-36); Mean Corpuscular Hemoglobin 31.8 pg (26-34); Mean Corpuscular Volume 88.8 fl (80-100); Mean Platelet Volume 9.3 fl (7.4-10.4); Monocytes Absolute Auto 0.5 K/mm3 (0.1-0.6); Monocytes Percent Auto 5.3 % (2.6-8.5); Neutrophils Absolute Auto 6.6 K/mm3 (1.3-6.7); Neutrophils Percent Auto 69.7 % (45.5-73.1); Platelet Count Result 202 k/mm3 (150-375); Red Blood Count 4.66 M/mm3 (4.6-6.20); Red Cell Distribution Width 14.6 % (11.5-14.5); White Blood Count 9.5 K/mm3 (4.5-10.0)
[2023-01-26] MEDS: MORPHINE SULFATE (*CRX) 4 MG/ML INJ IV PUSH ×2 (09:36→11:41)
[2023-01-26] MEDS: ONDANSETRON INJ 4 MG/2 ML VIAL IV PUSH ×2 (09:36→11:41)
[2023-01-26] MEDS: SODIUM CHLORIDE 0.9% IV 500 ML 999 ML IV CONT (09:37)
[2023-01-26 09:40] VITALS: BP 141/65; PULSE 118; RESP 18; O2SAT 98
[2023-01-26 09:40] LABS: Appearance Urine Clear (Clear); Bacteria Urine None Seen /hpf; Bilirubin Urine Negative (Negative); Blood Urine Negative (Negative); Color Urine Yellow (Yellow); Glucose Urine UA Negative (Negative); Ketones Urine Negative (Negative); Leukocyte Esterase Ur Negative LEU/UL (Negative); Nitrate Urine Negative (Negative); Non Pathogenic Casts 0-2; Protein Urine Trace mg/dL (Negative); RBC Urine 0-2 /hpf (0-2); Specific Grav Ur 1.018 (1.001-1.035); Squamous Epithelial Cell Urine None seen /hpf (Few); WBC Urine 0-5 /hpf; pH Urine 5.5 (5.0-9.0)
[2023-01-26 09:46] LABS: Add Urine Microscopic? YES
[2023-01-26 10:36] LABS: Alanine Aminotransferase 47 U/L (6-50); Albumin Level 4.3 g/dL (3.5-5.1); Alkaline Phosphatase 46 U/L (38-126); Anion Gap 9 mmol/L (8-16); Aspartate Amino Transferase 34 U/L (17-59); Bilirubin,Total 0.8 mg/dL (0.2-1.3); Blood Urea Nitrogen 7 mg/dL (9-20); Calcium 8.7 mg/dL (8.4-10.2); Carbon Dioxide 24 mmol/L (22-30); Chloride 104 mmol/L (98-107); Estimated CRCL calculation 160 ml/min; Estimated Glomerular Filt Rate > 60; Glucose 172 mg/dL (65-110); Lipase 52 U/L (23-300); Potassium 3.9 mmol/L (3.4-5.0); Sodium 137 mmol/L (137-145)
[2023-01-26 11:08] LABS: Troponin I < 0.012 ng/mL (0.000-0.034)
[2023-01-26 11:28] LABS: NT Pro B Type Natriuretic Pept < 20 pg/mL (19.9-100)
[2023-01-26 11:43] VITALS: BP 161/80; PULSE 112; RESP 18; O2SAT 97
[2023-01-26 12:39] VITALS: BP 138/82
== END 2023-01-26 12:42 | disposition home or self-care (01) ==
PROVIDERS: Emergency Medicine; Emergency Provider Physician Assistant; PCP Emergency Medicine
DX: K76.0 Fatty (change of) liver, not elsewhere classified (principal); M54.50 Low back pain, unspecified; K21.9 Gastro-esophageal reflux disease without esophagitis; F41.9 Anxiety disorder, unspecified; F32.A Depression, unspecified; Z98.1 Arthrodesis status; F17.210 Nicotine dependence, cigarettes, uncomplicated
CPT/HCPCS: 36415; 74177; 80053; 81001; 82043; 83690; 83880; 84481; 84484; 85025; 86376; 93005; 96361; 96374; 96375; 96376; 99284; J2270; J2405; J7040; Q9967

== ENCOUNTER 2023-01-26 12:42 | Outpatient (CLI) | payer BC, SELFPAY ==
[2023-01-26 13:41] LABS: Creatinine Urine 95.2 mg/dL
[2023-01-26 13:43] LABS: Microalbumin Urine Random 40.9 mg/L (0-16.7)
[2023-01-29 03:17] LABS: Thyroid Peroxidase Antibodies <1 IU/mL (<9)
[2023-01-29 04:14] LABS: Triiodothyronine T3 Free 2.5 pg/mL (2.3-4.2)
== END 2023-01-26 12:43 | disposition home or self-care (01) ==
LOC: ANHLAB 12:45
PROVIDERS: PCP Emergency Medicine; Visit Provider Emergency Medicine
DX: R94.6 Abnormal results of thyroid function studies (principal)
CPT/HCPCS: 36415; 82043; 84481; 86376

== ENCOUNTER 2023-03-03 10:53 | Emergency (ER) | payer BC, SELFPAY ==
--- NOTE | ~2023-03-03 | CT_ITS ---
EXAMINATION: CT brain wo con DATE: 03/03/2023 12:01 INDICATION: Head injury TECHNIQUE: Computed tomography (CT) of the head was performed without intravenous contrast. Sagittal and coronal reconstructions were performed. The mA was adjusted according to patient size. Iterative reconstruction technique was employed. The dose-length product was 681.00 mGy-cm. COMPARISON: head CT dated 11/04/2022 FINDINGS: Old fracture of the right lamina preparation and mesh plate and screw fixation along the inferior wal l of the right orbit. Left orbit is normal. No acute fracture. No acute intracranial hemorrhage, acut e infarction or abnormal extra axial fluid collection. Ventricles are normal and symmetric. No mass/m ass effect. Mild mucosal thickening the right maxillary sinus. The mastoid air cells and middle ear c avities are clear. IMPRESSION: 1. No acute fracture or acute intracranial process. Reviewed, dictated and finalized at location A.
[2023-03-03 11:18] VITALS: BP 139/81; PULSE 107; RESP 18; TEMP 36.8; O2SAT 97
--- NOTE | 2023-03-03 13:02 | ED.GENADULT ---
HPI - General Adult General Chief complaint: Head Injury Stated complaint: fell out of bed, head injury Time Seen by Provider: 03/03/23 12:11 History of Present Illness HPI narrative: 42-year-old male presented to the ED for evaluation of of headache dizziness and lightheadedness. Patient reports he did have a fall from bed last night and struck his head on the nightstand. Patient states he was having some double vision with this as well. Patient does have prior history of facial reconstruction including the right orbit and suspects that this may be affecting his double vision. Related Data Home Medications Medication Instructions Recorded Confirmed escitalopram oxalate 10 mg tablet mg 12/08/21 hydroxyzine HCl 25 mg tablet 12/08/21 12/08/21 omeprazole 40 mg capsule,delayed 40 mg PO DAILY 12/08/21 12/08/21 release quetiapine 100 mg tablet 12/08/21 12/08/21 Allergies Allergy/AdvReac Type Severity Reaction Status Date / Time No Known Allergies Allergy Verified 01/26/23 09:41 Review of Systems Review of Systems: All systems reviewed & are unremarkable except as noted in HPI and below PMFSH Past Medical History Medical History (Updated 03/03/23 @ 19:03 by Bandar Garza MD) Anxiety Depression GERD (gastroesophageal reflux disease) Muscle spasm Surgical History Surgical History History of lumbar fusion Social History Social History Smoking packs per day: 1 Smoking cigarettes per day: 20.0 Smoking status: Current every day smoker Alcohol intake: current Substance use: never Gender identity (if verbalized by the patient): Male Exam Narrative: APPEARANCE: Well appearing, no pain, no distress, well-nourished. HEAD: normocephalic, atraumatic. EYES: PERRLA/EOMI, conjunctivae clear. Double vision far right and far left field of vision. NOSE: Normal no drainage EARS:TMS clear with good light reflex. THROAT: Pharynx clear, no exudate. NECK: Supple. No adenopathy, no masses. RESPIRATORY: Airway patent, respirations nonlabored. Clear to auscultation bilaterally, no rales, rhonchi, wheezing. CARDIOVASCULAR: Regular rate and rhythm without murmurs rubs or gallops. ABDOMINAL: Soft, nontender, nondistended, normal bowel sounds MUSCULOSKELETAL: Moves all extremities. Strength/ROM intact, No edema, No calf tenderness. NEURO: Alert. Cranial nerves II through XII intact. Grossly intact. SKIN: Warm, dry. Normal Color Course Course Emergency Course: 42-year-old male presented the ED for evaluation of headache and blurred vision. Head CT was negative for acute intracranial abnormality. Patient does still have headache and lightheadedness. Patient was treated with IV Benadryl Compazine Toradol and IV fluids to treat his headache symptoms to see if this improves his vision issues. Patient states that his symptoms are improved with treatment with IV meds. Patient states that his double vision is improved along with his headache. Patient was up in the results of his imaging and the importance of close follow-up with the primary care physician. Patient was also encouraged to return to the ED if he had any worsening symptoms. Vital Signs Vital signs: Vital Signs Temperature 98.2 F 03/03/23 11:18 Pulse Rate 107 H 03/03/23 11:18 Respiratory Rate 18 03/03/23 11:18 Blood Pressure 139/81 03/03/23 11:18 Pulse Oximetry 97 03/03/23 11:18 Oxygen Delivery Room Air 03/03/23 11:18 Temperature 98.2 F 03/03/23 11:18 Pulse Rate 107 H 03/03/23 11:18 Respiratory Rate 18 03/03/23 11:18 Blood Pressure 139/81 03/03/23 11:18 Pulse Oximetry 97 03/03/23 11:18 Oxygen Delivery Room Air 03/03/23 11:18 Medical Decision Making Differential Diagnosis Differential Diagnosis: Concussion, atypical migraine, closed head injury, subdural hematoma, subarachnoid hemorrha
[2023-03-03] MEDS: PROCHLORPERAZINE EDISYLATE 10 MG/2 ML VIAL IV PUSH (13:13)
[2023-03-03] MEDS: SODIUM CHLORIDE 0.9% IV 1,000 ML 999 ML IV CONT (13:13)
[2023-03-03] MEDS: diphenhydrAMINE HCl INJ 50 MG/ML VIAL 25 MG IV PUSH (13:14)
[2023-03-03] MEDS: KETOROLAC 15 MG/ML VIAL (*BKC) IV PUSH (13:14)
== END 2023-03-03 14:07 | disposition home or self-care (01) ==
PROVIDERS: Emergency Provider Emergency Medicine; PCP Emergency Medicine
DX: S09.90XA Unspecified injury of head, initial encounter (principal); R51.9 Headache, unspecified; K21.9 Gastro-esophageal reflux disease without esophagitis; F41.9 Anxiety disorder, unspecified; F32.A Depression, unspecified; Z98.1 Arthrodesis status; F17.210 Nicotine dependence, cigarettes, uncomplicated; W06.XXXA Fall from bed, initial encounter
CPT/HCPCS: 70450; 96361; 96374; 96375; 99284; J0780; J1200; J1885; J7030

== ENCOUNTER 2023-04-01 16:35 | Outpatient (CLI) | payer BC, SELFPAY ==
--- NOTE | ~2023-04-01 | MR_ITS ---
MRI of the lumbar spine Clinical History: Spondylosis, radiculopathy Technique: Axial T2-weighted images, and sagittal T1-weighted, T2-weighted, and T2 fat-sat images wer e acquired. Findings: There is no fracture or subluxation of the lumbar spine. There is anterior fusion across th e L5-S1 disc space, with associated interbody fusion device present. There is also left-sided unilate ral posterior fusion hardware at the L5-S1 level with left posterior iraida and left-sided transpedicula r screws present. No suspicious bone marrow signal abnormality seen. At L1-L2, L2-L3, L3-L4, and L4-L5, there is no disc bulge or herniation. There are mild to moderate f acet joint degenerative changes at these levels. No spinal canal stenosis or neural foraminal narrowi ng at these levels. At L5-S1, there is no disc bulge or herniation. No spinal canal stenosis or definite neural foraminal narrowing. Paravertebral soft tissues are unremarkable aside from expected postoperative change. Impression: Postoperative change about the L5-S1 level, as detailed above. Mild to moderate facet joint degenerative changes in the lumbar spine. Reviewed, dictated and finalized at location . Impression: Postoperative change about the L5-S1 level, as detailed above. Mild to moderate facet joint degenerative changes in the lumbar spine.
== END 2023-04-01 16:36 | disposition home or self-care (01) ==
PROVIDERS: PCP Emergency Medicine; Visit Provider Nurse Practitioner Adult Health
DX: M47.26 Other spondylosis with radiculopathy, lumbar region (principal)
CPT/HCPCS: 72148

== ENCOUNTER 2023-09-12 10:48 | Emergency (ER) | payer OTHER, SELFPAY ==
[2023-09-12 10:59] VITALS: BP 136/85; PULSE 115; RESP 16; TEMP 37.1; O2SAT 99
--- NOTE | 2023-09-12 11:48 | ED.URI ---
HPI - URI/Sore Throat General Chief Complaint: Upper Respiratory Infection Stated Complaint: work note, tired, COVID + 7 days ago Time Seen by Provider: 09/12/23 11:48 Source: patient Mode of arrival: ambulatory Limitations: no limitations History of Present Illness HPI Narrative: 42-year-old male presents with complaint cough and congestion. Reports that he tested positive for COVID 6 days ago. Needs note to return to work. States feeling much better today. Continues to take DayQuil and NyQuil for cough and congestion. Afebrile. No chest pain or shortness of breath. All systems reviewed and negative except as noted above. Related Data Home Medications Medication Instructions Recorded Confirmed escitalopram oxalate 10 mg tablet 10 mg PO AC 12/08/21 09/12/23 hydroxyzine HCl 25 mg tablet 25 mg AC 12/08/21 09/12/23 omeprazole 40 mg capsule,delayed 40 mg PO DAILY 12/08/21 12/08/21 release quetiapine 100 mg tablet 100 mg PO AC 12/08/21 09/12/23 Allergies Allergy/AdvReac Type Severity Reaction Status Date / Time No Known Allergies Allergy Verified 09/12/23 11:10 Review of Systems Review of Systems: CONSTITUTIONAL: Denies fever, chills, or sweats. EYES: Denies visual changes, redness, or discharge. ENT: Reports rhinorrhea, congestion. Denies sore throat, or otalgia. CARDIOVASCULAR: Denies chest pain, palpitations, or edema. RESPIRATORY: reports cough. Denies dyspnea. GASTROINTESTINAL: Denies abdominal pain, nausea, vomiting, or diarrhea. GENITOURINARY: Denies dysuria or hematuria. SKIN: Denies rash or itching. MUSCULOSKELETAL: Denies back pain, joint pain, or myalgia. NEUROLOGIC: Denies headache, numbness, or weakness. PSYCHIATRIC: Denies anxiety or depression. All other systems reviewed are negative, except as documented in HPI. [facility] Past Medical History Medical History (Updated 09/12/23 @ 12:04 by Adri Valente NP) Anxiety Depression GERD (gastroesophageal reflux disease) Muscle spasm Surgical History Surgical History History of lumbar fusion Social History Social History Smoking packs per day: 1 Smoking cigarettes per day: 20.0 Smoking status: Current every day smoker Alcohol intake: current Substance use: never Gender identity (if verbalized by the patient): Male Comments At time of signature, agree with nursing past medical, surgical, social and family history. There is no relevant family history pertinent to the presenting complaint. Exam Narrative: GENERAL: This is a well-nourished, well-developed patient, in no apparent distress. HEAD: normocephalic, atraumatic. EYES: PERRL. Sclera clear/white. Vision is grossly intact. EARS: External ears normal, auditory canals clear and without drainage, TMs normal without perforation. Hearing grossly intact. NOSE: External nose normal with Clear nasal drainage, mild congestion with erythema to nares. THROAT: Mucous membranes moist, posterior pharynx clear. NECK: Neck supple, non-tender without lymphadenopathy, masses or thyromegaly. CARDIOVASCULAR: Regular rate and rhythm without murmurs, gallops, or rubs. RESPIRATORY: Clear to auscultation. Breath sounds equal bilaterally. No wheezes, rales, or rhonchi. SKIN: warm, Dry, intact with no suspicious lesions or rash, good texture and turgor. NEURO: awake, alert, and oriented to person, place and time. There were no obvious focal neurologic abnormalities. EXTREMITIES: No joint tenderness, effusion, or edema noted. Course Course Level of Care: Express Care Visit Vital Signs Vital signs: Vital Signs Temperature 37.1 C 09/12/23 10:59 Pulse Rate 115 H 09/12/23 10:59 Respiratory Rate 16 09/12/23 10:59 Blood Pressure 136/85 09/12/23 10:59 Pulse Oximetry 99 09/12/23 10:59 Oxygen Delivery Room Air 09/12/23 10:59 Temperature 3
== END 2023-09-12 12:50 | disposition home or self-care (01) ==
PROVIDERS: Emergency Provider Nurse Practitioner Family
DX: U07.1 COVID-19 (principal); F41.9 Anxiety disorder, unspecified; F32.A Depression, unspecified; K21.9 Gastro-esophageal reflux disease without esophagitis; F17.210 Nicotine dependence, cigarettes, uncomplicated
CPT/HCPCS: 99211; G0463

== ENCOUNTER 2023-11-03 09:07 | Emergency (ER) | payer OTHER, SELFPAY ==
--- NOTE | ~2023-11-03 | XR_ITS ---
XR lumbar spine 2-3V 11/03/2023 12:22 Indication: Acute back pain Procedure: 3 views lumbar spine Comparison: 03/21/2020 Findings: Status post anterior and posterior fusion at L5-S1, hardware intact with position of the jose alfredo mbosacral junction unchanged. Vertebral body heights are maintained. Pedicles intact. Sacral foramen are symmetric. Impression: 1: No acute abnormality of the lumbar spine status post anterior and posterior fusion at L5-S1. No si gnificant interval change. Reviewed, dictated and finalized at location B. GEMENT ASSISTANT Impression: 1: No acute abnormality of the lumbar spine status post anterior and posterior fusion at L5-S1. No significant interval change.
[2023-11-03 09:10] VITALS: BP 143/82; PULSE 102; RESP 18; TEMP 36.6; O2SAT 97
--- NOTE | 2023-11-03 11:41 | ED.BACK ---
HPI - Back Pain/Injury General Chief Complaint: Back Pain/Injury Stated Complaint: back pain Time Seen by Provider: 11/03/23 10:52 History of Present Illness HPI Narrative: 43-year-old male presenting to the emergency department for evaluation of low back pain. Patient states that he does have a prior history back surgery including a fusion approximately 7 years ago done at [facility]. Patient states when he woke up yesterday he had onset of lower back pain. Patient denies any falls or injuries. Patient denies any associated numbness or weakness. Patient states he does have pain that radiates down his left hip and leg. Patient denies any change in bowel or bladder habits. Related Data Home Medications Medication Instructions Recorded Confirmed escitalopram oxalate 10 mg tablet 10 mg PO AC 12/08/21 09/12/23 hydroxyzine HCl 25 mg tablet 25 mg AC 12/08/21 09/12/23 omeprazole 40 mg capsule,delayed 40 mg PO DAILY 12/08/21 12/08/21 release quetiapine 100 mg tablet 100 mg PO AC 12/08/21 09/12/23 Allergies Allergy/AdvReac Type Severity Reaction Status Date / Time No Known Allergies Allergy Verified 11/03/23 12:08 Review of Systems Review of Systems: All systems reviewed & are unremarkable except as noted in HPI and below PMFSH Past Medical History Medical History (Updated 11/04/23 @ 00:00 by Background Daemon) Anxiety Depression GERD (gastroesophageal reflux disease) Muscle spasm Surgical History Surgical History History of lumbar fusion Social History Social History Smoking packs per day: 1 Smoking cigarettes per day: 20.0 Smoking status: Current every day smoker Alcohol intake: current Substance use: never Gender identity (if verbalized by the patient): Male Exam Narrative: APPEARANCE: Well appearing, no pain, no distress, well-nourished. HEAD: normocephalic, atraumatic. EYES: PERRLA/EOMI, conjunctivae clear. NOSE: Normal no drainage NECK: Supple. No adenopathy, no masses. RESPIRATORY: Airway patent, respirations nonlabored. Clear to auscultation bilaterally, no rales, rhonchi, wheezing. CARDIOVASCULAR: Regular rate and rhythm without murmurs rubs or gallops. ABDOMINAL: Soft, nontender, nondistended, normal bowel sounds MUSCULOSKELETAL: Reproducible lumbar spinal tenderness to palpation and tenderness to left lateral hip consistent with sciatica. NEURO: Alert. Cranial nerves II through XII intact. Grossly intact SKIN: Warm, dry. Normal Color Course Course Emergency Course: 43-year-old male presented to ED for evaluation lower back pain, x-ray shows no acute fracture dislocation. Patient does describe symptoms of sciatica, patient was started on a muscle relaxant advised to take Tylenol ibuprofen for pain control and patient was started on Medrol Dosepak. Patient was encouraged close follow-up with primary care physician. Vital Signs Vital signs: Vital Signs Temperature 97.9 F 11/03/23 09:10 Pulse Rate 102 H 11/03/23 09:10 Respiratory Rate 18 11/03/23 09:10 Blood Pressure 143/82 H 11/03/23 09:10 Pulse Oximetry 97 11/03/23 09:10 Temperature 98.1 F 11/03/23 12:07 Pulse Rate 76 11/03/23 12:07 Respiratory Rate 18 11/03/23 12:07 Blood Pressure 129/81 11/03/23 12:07 Pulse Oximetry 98 11/03/23 12:07 MDM - Back Pain/Injury Lab Data Labs: Lab Results 11/03/23 Range/Units 11:41 Urine Color Yellow (Yellow) Urine Appearance Clear (Clear) Urine pH 5.5 (5.0-9.0) Ur Specific [place] 1.008 (1.001-1.035) Urine Protein Negative (Negative) mg/dL Urine Glucose (UA) Negative (Negative) mg/dL Urine Ketones Negative (Negative) mg/dL Ur Blood (Man) Negative (Negative) Urine Nitrate Negative (Negative) Urine Bilirubin Negative (Negative) Urine Urobilinogen 1.0 (<2.0) mg/dL Leukocyte Esteras
[2023-11-03 11:48] LABS: Appearance Urine Clear (Clear); Bilirubin Urine Negative (Negative); Blood Urine Negative (Negative); Color Urine Yellow (Yellow); Glucose Urine UA Negative (Negative); Ketones Urine Negative (Negative); Leukocyte Esterase Ur Negative LEU/UL (Negative); Nitrate Urine Negative (Negative); Protein Urine Negative (Negative); Specific Grav Ur 1.008 (1.001-1.035); pH Urine 5.5 (5.0-9.0)
[2023-11-03 11:52] LABS: Add Urine Microscopic? NO
[2023-11-03 12:07] VITALS: BP 129/81; PULSE 76; RESP 18; TEMP 36.7; O2SAT 98
== END 2023-11-03 13:10 | disposition home or self-care (01) ==
PROVIDERS: Emergency Provider Emergency Medicine; PCP Family Medicine
DX: S39.012A Strain of muscle, fascia and tendon of lower back, initial encounter (principal); F17.210 Nicotine dependence, cigarettes, uncomplicated; F41.9 Anxiety disorder, unspecified; F32.A Depression, unspecified; K21.9 Gastro-esophageal reflux disease without esophagitis; X58.XXXA Exposure to other specified factors, initial encounter
CPT/HCPCS: 72100; 81003; 99283